=== PATIENT | female | born 1965 | race Caucasian/White ===

== ENCOUNTER → 2017-03-15 | Outpatient (CLI) | payer BC | LOC: MC.RAD 07:28 | DX: Z12.31 Encounter for screening mammogram for malignant neoplasm of breast (principal); Z98.890 Other specified postprocedural states ==

== ENCOUNTER → 2017-10-13 | Outpatient (CLI) | payer BC | LOC: MC.RAD 13:00 | DX: N60.01 Solitary cyst of right breast (principal); N63.21 Unspecified lump in the left breast, upper outer quadrant; R60.9 Edema, unspecified; I10 Essential (primary) hypertension; Z98.890 Other specified postprocedural states ==

== ENCOUNTER → 2017-10-19 | Outpatient (CLI) | payer BC | LOC: COL.VAS 07:49 | DX: R60.0 Localized edema (principal) ==

== ENCOUNTER → 2018-07-01 | Outpatient (CLI) | payer BC | LOC: MC.RAD 09:27 | DX: N60.01 Solitary cyst of right breast (principal); N63.21 Unspecified lump in the left breast, upper outer quadrant | CPT/HCPCS: G0279 ==

== ENCOUNTER → 2018-07-05 | Outpatient (CLI) | payer BC | LOC: MC.RAD 07:25 | DX: N60.01 Solitary cyst of right breast (principal); N64.4 Mastodynia; Z98.82 Breast implant status ==

== ENCOUNTER → 2019-07-11 | Outpatient (CLI) | payer BC | LOC: MC.RAD 15:34 | DX: Z12.31 Encounter for screening mammogram for malignant neoplasm of breast (principal) ==

== ENCOUNTER → 2020-07-12 | Outpatient (CLI) | payer BC | LOC: MC.RAD 08:30 | DX: Z12.31 Encounter for screening mammogram for malignant neoplasm of breast (principal); N63.10 Unspecified lump in the right breast, unspecified quadrant; N63.20 Unspecified lump in the left breast, unspecified quadrant ==

== ENCOUNTER → 2021-08-26 | Outpatient (CLI) | payer BC | LOC: MC.RAD 07:15 | DX: Z12.31 Encounter for screening mammogram for malignant neoplasm of breast (principal) ==